=== PATIENT | male | born 1990 | race Hispanic/Latino ===

== ENCOUNTER 2023-02-26 22:54 | Emergency (ER) | payer SELFPAY ==
[2023-02-26 22:58] VITALS: BP 131/61; PULSE 90; RESP 20; TEMP 36.9; O2SAT 100
--- NOTE | 2023-02-27 00:56 | ED.GENADULT ---
HPI - General Adult General Chief complaint: Skin/Abscess/Foreign Body Stated complaint: bug bite to left upper arm Time Seen by Provider: 02/27/23 00:51 Source: patient Mode of arrival: ambulatory Limitations: no limitations History of Present Illness HPI narrative: This is a 32-year-old male who presents to the ED with chief complaint of redness and swelling to the left upper arm beginning 2 days ago. Reports he may have been bitten by a bug while moving things out of a storage unit on Friday. He had initial bite akil lesion and itching in the area but has noticed redness has been spreading from the area ever since. Reports the arm is now painful. Reports chills today but no fevers, nausea or vomiting. Denies any history of immunocompromising conditions. Denies any further complaint. Related Data Allergies Allergy/AdvReac Type Severity Reaction Status Date / Time No Known Allergies Allergy Verified 02/27/23 00:59 Review of Systems Review of Systems: All systems as dictated in HPI Exam Narrative: GENERAL: Well-appearing, well-nourished, and in no acute distress. HEAD: Normocephalic, atraumatic. EYES: PERRLA and EOMI. ENT: Nares clear, no rhinorrhea or epistaxis. Mucous membranes moist. Oropharynx without tonsillar hypertrophy exudate or other lesions. NECK: Supple. No adenopathy or masses. CHEST: No respiratory distress. Clear to auscultation. No wheezes rales or rhonchi HEART: Regular rate and rhythm. No murmur heard. Normal peripheral pulses. ABDOMEN: Soft, nontender, nondistended, normal active bowel sounds. MSK: Normal range of motion. No edema. SKIN: 12 x 10 cm area of erythema noted to the left, medial upper arm in the biceps area. There is a central bite akil appearing lesion. No streaking to the axillary region. Minimal swelling. No drainage. No area of fluctuance or induration. NEURO: Alert and oriented x3. No focal deficits. PSYCH: Normal mood and affect. Course Vital Signs Vital signs: Vital Signs Temperature 98.5 F 02/26/23 22:58 Pulse Rate 90 02/26/23 22:58 Respiratory Rate 20 02/26/23 22:58 Blood Pressure 131/61 02/26/23 22:58 Pulse Oximetry 100 02/26/23 22:58 Temperature 98.5 F 02/26/23 22:58 Pulse Rate 90 02/26/23 22:58 Respiratory Rate 20 02/26/23 22:58 Blood Pressure 131/61 02/26/23 22:58 Pulse Oximetry 100 02/26/23 22:58 Medical Decision Making MDM Narrative Medical decision making narrative: This is a 32-year-old male who presents to the ED with chief complaint of left upper extremity redness and swelling. Vitals are normal. Afebrile. Exam shows erythema to the medial left upper arm in the biceps region. There is a central punctate lesion which likely represents old bug bite. Symptoms consistent with cellulitis without abscess. No significant white count on lab work. No immunocompromising conditions. He was given his first dose of antibiotics here. Prescription for Keflex sent to the pharmacy. Pt will be discharged in stable condition. Return precautions given and supportive measures discussed. Pt is understanding and agreeable with plan for discharge and follow-up with PCP. Vital Signs Vital Signs: Vital Signs Temperature 98.5 F 02/26/23 22:58 Pulse Rate 90 02/26/23 22:58 Respiratory Rate 20 02/26/23 22:58 Blood Pressure 131/61 02/26/23 22:58 Pulse Oximetry 100 02/26/23 22:58 Temperature 98.5 F 02/26/23 22:58 Pulse Rate 90 02/26/23 22:58 Respiratory Rate 20 02/26/23 22:58 Blood Pressure 131/61 02/26/23 22:58 Pulse Oximetry 100 02/26/23 22:58 Lab Data 02/27/23 01:03 02/27/23 01:03 Labs: Lab Results 02/27/23 Range/Units 01:03 WBC 9.6 (4.5-10.0) K/mm3 RBC 4.56 L (4.6-6.20) M/mm3 Hgb 13.6 L (14.0-18.0) g/dL Hct 41.3 L (42.0-52.0) % MCV 90.6 (80-100) fl MCH 29.8 (26-34) pg MCHC 32.9 (32-36) g/dl RDW 13.1 (11.5-14.
[2023-02-27] MEDS: CEPHALEXIN 500 MG CAPSULE PO (01:03)
[2023-02-27] MEDS: ACETAMINOPHEN 500 MG TABLET 1000 MG PO (01:04)
[2023-02-27 01:27] LABS: Basophils Percent Auto 0.3 % (0.2-1.2); Eosinophils Absolute Auto 0.2 K/mm3 (0-0.3); Eosinophils Percent Auto 2.2 % (0-4.4); Hematocrit 41.3 % (42.0-52.0); Hemoglobin 13.6 g/dL (14.0-18.0); Immature Granulocyte Absolute 0.03 K/mm3 (0.00-0.031); Immature Granulocyte Percent A 0.3 % (0-0.5); Lymphocytes Absolute Auto 1.55 K/mm3 (0.9-3.2); Lymphocytes Percent Auto 16.2 % (18.3-44.2); Mean Corpuscular HGB Conc 32.9 g/dl (32-36); Mean Corpuscular Hemoglobin 29.8 pg (26-34); Mean Corpuscular Volume 90.6 fl (80-100); Mean Platelet Volume 10.5 fl (7.4-10.4); Monocytes Absolute Auto 0.7 K/mm3 (0.1-0.6); Monocytes Percent Auto 6.9 % (2.6-8.5); Neutrophils Absolute Auto 7.1 K/mm3 (1.3-6.7); Neutrophils Percent Auto 74.1 % (45.5-73.1); Platelet Count Result 182 k/mm3 (150-375); Red Blood Count 4.56 M/mm3 (4.6-6.20); Red Cell Distribution Width 13.1 % (11.5-14.5); White Blood Count 9.6 K/mm3 (4.5-10.0)
[2023-02-27 01:39] LABS: Alanine Aminotransferase 69 U/L (6-50); Albumin Level 4.6 g/dL (3.5-5.1); Alkaline Phosphatase 77 U/L (38-126); Anion Gap 9 mmol/L (8-16); Aspartate Amino Transferase 36 U/L (17-59); Bilirubin,Total 0.9 mg/dL (0.2-1.3); Blood Urea Nitrogen 14 mg/dL (9-20); Carbon Dioxide 28 mmol/L (22-30); Chloride 100 mmol/L (98-107); Estimated CRCL calculation 85 ml/min; Estimated Glomerular Filt Rate > 60; Glucose 99 mg/dL (65-110); Potassium 3.4 mmol/L (3.4-5.0); Sodium 137 mmol/L (137-145)
== END 2023-02-27 01:52 | disposition home or self-care (01) ==
PROVIDERS: Emergency Provider Physician Assistant
DX: L03.114 Cellulitis of left upper limb (principal)
CPT/HCPCS: 36415; 80053; 85025; 99283; A9270